=== PATIENT | female | born 1945 | race African-American/Black ===

== ENCOUNTER 2016-07-23 06:47 | Day surgery (SDC) | payer OTHER ==
[2016-07-17 16:03] VITALS: BMI 29.2
[~2016-07-23 06:47] MED LIST: CHONDROITIN SU A/HYALUR SOD 1 KIT IO ONE; LIDOCAINE HCL 1% PRESERVATIVE FREE - 30ML VIAL IO ONE; TRYPAN BLUE 0.5 ML DISP.SYRIN IO ONE
[2016-07-23] MEDS: CIPROFLOXACIN 0.3% EYE DROPS 5 ML BOTTLE ONE ×3 (07:10→07:43)
[2016-07-23] MEDS: PHENYLEPHRINE 2.5% OPHTH SOLN 15 ML BOTTLE ONE ×3 (07:10→07:44)
[2016-07-23] MEDS: FLURBIPROFEN 0.03% OPHTH SOLN 2.5 ML BOTTLE ONE ×3 (07:10→07:43)
[2016-07-23] MEDS: TROPICAMIDE 1% OPHTH SOLN 15 ML BOTTLE ONE ×3 (07:10→07:44)
[2016-07-23] MEDS: CYCLOPENTOLATE HCL 1% OPHTH SOLN 2 ML BOTTLE ONE ×3 (07:10→07:43)
[2016-07-23 07:14] VITALS: TEMP 98.3
[2016-07-23] MEDS ORDERED: EPINEPHrine/PF 1 MG/1 ML (1:1,000) AMPULE ONE (07:24)
[2016-07-23] MEDS ORDERED: ACETYLCHOLINE 1:100 INTRA-OCUL 20 MG/2 ML KIT ONE (07:25)
[2016-07-23] MEDS ORDERED: VANCOMYCIN 500 MG VIAL (RESTRICTED TO ID ONLY) ONE (07:25)
[2016-07-23] MEDS ORDERED: LIDOCAINE HCL 2% JELLY (5 ML/TUBE) ONE (07:25)
[2016-07-23] MEDS ORDERED: LIDOCAINE HCL/PF 1% SDV 5ML VIAL ONE (07:25)
[2016-07-23] MEDS ORDERED: TRYPAN BLUE 0.5 ML DISP.SYRIN ONE (07:25)
[2016-07-23] MEDS ORDERED: WATER FOR INJ,STERILE 10 ML ONE (07:25)
[2016-07-23] MEDS ORDERED: POVIDONE-IODINE 5% OPHTHALMIC PREP 30 ML SOLUTION ONE (07:26)
[2016-07-23] MEDS ORDERED: ACETAMINOPHEN 325 MG TABLET (FP) PO PRN (07:55)
[2016-07-23] MEDS ORDERED: CYCLOPENTOLATE HCL 1% OPHTH SOLN 2 ML BOTTLE OP SCH (08:00)
[2016-07-23] MEDS ORDERED: TROPICAMIDE 1% OPHTH SOLN 15 ML BOTTLE OP SCH (08:00)
[2016-07-23] MEDS ORDERED: PHENYLEPHRINE 2.5% OPHTH SOLN 15 ML BOTTLE OP SCH (08:00)
[2016-07-23] MEDS ORDERED: CIPROFLOXACIN HCL 0.3% OPHTH 2.5ML BOTTLE OP SCH (08:00)
[2016-07-23] MEDS ORDERED: FLURBIPROFEN 0.03% OPHTH SOLN 2.5 ML BOTTLE OP SCH (08:00)
[2016-07-23] MEDS ORDERED: LIDOCAINE HCL 2% JELLY (5 ML/TUBE) TP ONE (08:00)
[2016-07-23] MEDS ORDERED: MIDAZOLAM HCL 2 MG/2 ML SINGLE DOSE VIAL ONE (08:10)
[2016-07-23] MEDS ORDERED: LIDOCAINE HCL 1% PRESERVATIVE FREE - 30ML VIAL IO ONE (08:20)
[2016-07-23] MEDS ORDERED: TRYPAN BLUE 0.5 ML DISP.SYRIN IO ONE (08:20)
[2016-07-23] MEDS ORDERED: CHONDROITIN SU A/HYALUR SOD 1 KIT IO ONE (08:21)
[2016-07-23 10:07] VITALS: BP 157/79; PULSE 85
--- NOTE | 2016-07-24 13:55 | SPEC ---
DATE OF SURGERY: 07/23/2016 OPERATION: Phacoemulsification of left cataract, capsular staining with Trypan blue and intraocular lens implantation, lens used [id number], 23.0 Diopter power, Serial No. [id number]. PREOPERATIVE DIAGNOSIS: Cataract left eye. POSTOPERATIVE DIAGNOSIS: Combined cataract left eye. SURGEON: Judson Zurita M.D. ANESTHESIA: Topical MAC. COMPLICATIONS: None. PROCEDURE: The patient was brought to the operating room and correctly identified along with the operative site as well as correct intraocular lens kohli. The patient was then prepped and draped in the usual sterile fashion including 5% Betadine solution in the conjunctival sac and an eyelid drape. An eyelid speculum was then placed into the operative eye. The eye was inspected and a poor red reflex was noted. A paracentesis port was created and .5 mL of intracameral preservative-free Lidocaine 1% was given. Beneath an air bubble, the capsule was then stained with Trypan blue. The Trypan blue was then irrigated from the eye with balanced salt solution (BBS). Viscoelastic was injected to inflate the anterior chamber. A temporal clear corneal would was created. A continuous circular capsulorrhexis was performed. The nucleus was then hydro-dissected and hydro-delineated was BSS and removed with phacoemulsification via [id number] approach. The remaining cortical material was irrigated and aspirated from the eye. Viscoelastic was injected in the anterior chamber to inflate the capsular bag. The intraocular lens was then injected into the bag. The Viscoelastic was irrigated and aspirated from the eye. All wounds were tested and found to be watertight. No suture was placed. The intraocular lens was noted to be well centered and covered by the anterior capsular border. Topical Vancomycin was given. The eye was patched and shielded. The patient was discharged from the operating room in stable condition. Faby [id number]
== END 2016-07-23 10:15 | disposition home or self-care (01) ==
LOC: JASU-SURG 06:47
PROVIDERS: ATTEND Ophthalmology
PROC: 08RK3JZ Replacement of Left Lens with Synthetic Substitute, Percutaneous Approach (ICD-10-PCS; principal; 2016-07-23 08:00)
DX: H25.812 Combined forms of age-related cataract, left eye (principal)

== ENCOUNTER 2018-03-11 16:58 | Emergency (ER) | payer OTHER ==
--- NOTE | 2018-03-11 17:33 | PDOC ---
Rapid Medical Evaluation Chief Complaint: Vaginal Sxs Time Seen by Provider: 03/11/18 17:26 Medical Evaluation: Allergies Allergy/AdvReac Type Severity Reaction Status Date / Time No Known Drug Allergies Allergy Verified 07/08/16 17:30 dander Allergy Uncoded 07/07/16 11:41 pollen Allergy Uncoded 07/07/16 11:41 03/11/18 17:29 I have performed a brief in person evaluation of this patient. The patient presents with a CC of: vaginal drainage Pt is a 72 YO female who states that earlier today she felt "a mucoid substance vaginally x 2." Pt denies pain. She denies hx of stress incontinence or hysterectomy. PE: Skin: clear Lungs: Clear Heart: RRR Abd: No pain upon palpation MS: Moves all extremities without difficulty. Psych: Age appropriate. UA/Urine Culture ordered The patient will proceed to the ED for further evaluation. Discharge Disposition - Diagnosis Vaginal discharge - Referrals - Patient Instructions - Post Discharge Activity
[2018-03-11 17:44] VITALS: BMI 28.7
--- NOTE | 2018-03-11 18:10 | PDOC ---
History of Present Illness - General Chief Complaint: Vaginal Sxs Stated Complaint: DRAINAGE Time Seen by Provider: 03/11/18 17:26 History Source: Patient Exam Limitations: No Limitations Past History - Past Medical History Allergies/Adverse Reactions: Allergies Allergy/AdvReac Type Severity Reaction Status Date / Time No Known Drug Allergies Allergy Verified 07/08/16 17:30 dander Allergy Uncoded 07/07/16 11:41 pollen Allergy Uncoded 07/07/16 11:41 Home Medications: Ambulatory Orders Losartan/Hydrochlorothiazide [Losartan-Hctz 100-12.5 mg Tab] 1 each PO HS Rosuvastatin Calcium [Crestor] 10 mg PO HS 07/09/16 Anemia: No Asthma: Yes (seasonal allergies) Cardiac Disorders: No CVA: No COPD: No CHF: No Dementia: No Diabetes: No GI Disorders: No Disorders: No HTN: Yes Hypercholesterolemia: Yes Liver Disease: No Seizures: No Thyroid Disease: No - Immunization History Immunization Up to Date: Yes - Suicide/Smoking/Psychosocial Hx Smoking History: Never smoked Have you smoked in the past 12 months: No Information on smoking cessation initiated: No Hx Alcohol Use: No Drug/Substance Use Hx: No Substance Use Type: None Hx Substance Use Treatment: No *Physical Exam - Vital Signs Last Vital Signs Temp Pulse Resp BP Pulse Ox 98.1 F 107 H 16 163/76 100 03/11/18 17:29 03/11/18 17:29 03/11/18 17:29 03/11/18 17:29 03/11/18 17:29 ED Treatment Course - LABORATORY CBC & Chemistry Diagram: 03/11/18 20:55 03/11/18 19:35 Medical Decision Making - Medical Decision Making Pt was seen at bedside, also will be seen by attending Dr. Alaniz. Pt presenting with PE showed [] Considering [vs vs] Ordered work-up including [labs] and [imaging]. Provided [interventions/meds] for improvement of [pain/symptom control]. Will continue to reassess pt and monitor for symptomatic improvement. 03/11/18 18:27 Asked pt to undress and gown. Will perform pelvic exam, chaperoned by Dr. Alaniz. Pending UA results. 03/11/18 18:32 Vaginal exam showed blood in the vaginal canal, no discharge. Cervix not visualized. Ordered transvaginal US to evaluate for fibroids. UA showed 3+ blood and 323 RBCs, pt has vaginal bleeding, no urinary symptoms. Tech drawing blood, will be taken to US. Pt comfortable and denying any pain control at this point. 03/11/18 19:25 Pt was taken to US, lab results pending. 03/11/18 19:57 Pt returned from US. Calling lab to ask about pending labs. 03/11/18 20:17 Lab did not receive CBC tube. Nursing staff will re-draw and send to lab. Pending US results. 03/11/18 20:34 Pending CBC results, CMP WNL 03/11/18 21:11 [id number] US/TRANSVAGINAL ULTRASOUND US Transvaginal ultrasound Clinical information: vaginal bleeding/discharge; evaluate for fibroid The exam was performed utilizing transvaginal as well as transabdominal scanning. The endometrium is thickened measuring 1.3 cm. Several intramural partially calcified leiomyomas are noted the most prominent measuring 3 cm in diameter. Overall uterine size is approximately 10 x 7 x 7 cm. No free intraperitoneal fluid is seen. The ovaries could not be definitely visualized. No gross adnexal pathology is identified. Impression: Nonspecific endometrial thickening is noted (1.3 cm) - ? hyperplasia versus neoplastic disease. Several partially calcified uterine leiomyomas are seen. 03/11/18 21:[address] Quintero to see if pt can follow-up in clinic within next 1-2 days. Pending CBC, called lab who stated it will be ready in a few minutes. 03/11/18 21:[address] Quintero, who will see the pt in clinic for endometrial biopsy. Considering [normal lab results and imaging] pt can be discharged to home with follow-up. Pt advised to follow-up with PCP in 1-2 days and has been referred to [referrals]. Strict return precautions provided with pt understanding. 03/11/18 21:36 *DC/Admit/Observation/Transfer Diagnosis at time of Disposition: Vaginal discharge - Discharge Dispostion Disposition: HOME Condition at time of disposition: Stable Decision to Admit order: No - Referrals Referrals: Shea Coronado MD [Staff Physician] - Kamla Quintero MD [Staff Physician] - - Patient Instructions Printed Discharge Instructions: DI for Vaginal Discharge Additional Instructions: You were seen in the ER today for fluid from your vagina. Please follow-up with your primary care doctor (Dr. Valdivia) and your ENGINEERING TECHNICAL WRITER doctor (Dr. Quintero) within 1-2 days to discuss your visit and make sure your symptoms have improved. You were provided copies of your lab results and ultrasound, which you can take to your clinic visits. Please return to the ER if you have any new or worsening pain, vaginal discharge that is worse or becomes foul-smelling, development of fevers or chills, loss of consciousness, inability to tolerate food or fluids, urinary symptoms (frequency or pain), or any other concerns. - Post Discharge Activity
[2018-03-11 18:44] LABS: URINE APPEARANCE CLEAR; URINE BILIRUBIN NEGATIVE (<2.0 mg/dL); URINE COLOR LTYELLOW; URINE GLUCOSE (UA) NEGATIVE (NEGATIVE); URINE KETONE NEGATIVE (NEGATIVE); URINE LEUK ESTERASE TRACE (NEGATIVE); URINE NITRITE NEGATIVE (NEGATIVE); URINE PROTEIN NEGATIVE (NEGATIVE); URINE UROBILINOGEN NEGATIVE mg/dL (0.2-1.0)
[2018-03-11 18:53] LABS: URINE HYALINE CAST 1 /lpf; URINE MUCUS RARE
--- NOTE | 2018-03-11 19:15 | PDOC ---
Attending Attestation - HPI HPI: 03/11/18 19:17 The patient is a 72 year old female with a significant past medical history of HTN and HLD who presents to the ED for vaginal discharge earlier today. The patient states she felt a mucus gush from her vagina around 2:30 pm earlier today. She states the mucus like vaginal discharge has resolved and she now has vaginal bleeding. Denies recent trauma. Denies fever or chills. Denies any other symptoms. - Physicial Exam PE: 03/11/18 19:17 Constitutional: Awake, alert, oriented. No acute distress. Head: Normocephalic. Atraumatic Eyes: PERRL. EOMI. Conjunctivae are not pale. ENT: Mucous membranes are moist and intact. Posterior pharynx without exudates or erythema. Uvula midline. Neck: Supple. Full ROM. No lymphadenopathy. Cardiovascular: Regular rate. Regular rhythm. S1, S2 regular. Distal pulses are 2+ and symmetric. Pulmonary/Chest: No evidence of respiratory distress. Clear to auscultation bilaterally No wheezing, rales or rhonchi. Abdominal: Soft and non-distended. There is no tenderness. No rebound, guarding or rigidity. No organomegaly. No palpable masses. Good bowel sounds. Vaginal: + external genital is normal. Blood in vaginal canal, no active bleeding. Back: No CVA tenderness. Musculoskeletal: No edema. No cyanosis. No clubbing. Full range of motion in all extremities. Nocalf tenderness. Radial/pedal pulses are intact and 2+ bilaterally Skin: Skin is warm and dry. No petechiae. No purpura. Neurological: Alert and oriented to person, place, and time. Cranial nerves II -XII are grossly intact. Normal speech. Strength is grossly symmetric. No sensory deficits. Psychiatric: Good eye contact. Normal interaction, affect and behavior. <Lalitha Unger - Last Filed: 03/11/18 19:17> - Resident Resident Name: Nlisa Turner - ED Attending Attestation I have performed the following: I have examined & evaluated the patient, The case was reviewed & discussed with the resident, I agree w/resident's findings & plan, Exceptions are as noted - Medical Decision Making 03/11/18 19:13 I, Dr. Barby Alaniz, DO, attest that this document has been prepared under my direction and personally reviewed by me in its entirety. I further attest, that it accurately reflects all work, treatment, procedures and medical decision -making performed by me. 03/11/18 19:13 a/p: 72yo female with vaginal bleeding -hx of fibroids -follows with Dr. Quintero -calcified fibroid on bedside ultrasound -no urinary retention -no urinary complaints -soaking through pads with initially yellow fluid, now BRB -no clots -will send labs, pelvic ultrasound to eval the fibroid 03/11/18 21:41 pt with fibroids on ultrasound and endometrial thickening resident discussed the case with Dr. Quintero who will see patient in next day for appt and bx resident discussed labs and imaging with the patient pt is stable for d/c to home and follow up with Dr. Quintero <Barby Alaniz - Last Filed: 03/11/18 21:50> Attestations - Attestations 03/11/18 19:17 Documentation prepared by Lalitha Unger, acting as durable medical equipment repairer for Barby Alaniz DO <Lalitha Unger - Last Filed: 03/11/18 19:17>
[2018-03-11 20:41] LABS: ALK PHOS 67 U/L (45-117); ANION GAP 10 MMOL/L (8-16); BILIRUBIN,TOTAL 0.6 mg/dL (0.2-1); BLOOD UREA NITROGEN 22 mg/dL (7-18); CALCIUM 9.1 mg/dL (8.5-10.1); CHLORIDE 105 mmol/L (98-107); CO2 27 mmol/L (21-32); CREATININE 0.8 mg/dL (0.55-1.3); GLUCOSE,RANDOM 88 mg/dL (74-106); POTASSIUM 3.6 mmol/L (3.5-5.1); SGOT/AST 17 U/L (15-37); SGPT/ALT 24 U/L (13-61); SODIUM 142 mmol/L (136-145); TOT PROT 7.4 g/dl (6.4-8.2)
[2018-03-11 21:26] LABS: BASO % 0.6 % (0-2.0); EOS % 1.2 % (0-4.5); HEMATOCRIT 37.9 % (32.4-45.2); HEMOGLOBIN 12.2 GM/dL (10.7-15.3); LYMPH % 16.9 % (8-40); MCH 29.2 pg (25.7-33.7); MCHC 32.2 g/dl (32.0-36.0); MEAN CELL VOLUME 90.9 fl (80-96); MEAN PLT VOLUME 10.6 fl (7.5-11.1); NEUT % 73.3 % (42.8-82.8); PLATELET COUNT 158 K/MM3 (134-434); RBC 4.17 M/mm3 (3.60-5.2)
[2018-03-11 22:20] VITALS: BP 152/46; PULSE 84; TEMP 97.9
== END 2018-03-11 21:55 | disposition home or self-care (01) ==
LOC: JER 16:58
DX: N89.8 Other specified noninflammatory disorders of vagina (principal); I10 Essential (primary) hypertension; E78.00 Pure hypercholesterolemia, unspecified; J45.909 Unspecified asthma, uncomplicated
CPT/HCPCS: 36415; 76830-TC; 80053; 81003; 81015; 85025; 86850; 86900; 86901; 87086; 99283-25

== ENCOUNTER 2018-06-25 04:57 | Day surgery (SDC) | payer OTHER ==
[2018-06-21 17:35] VITALS: BMI 28.3
[2018-06-25] MEDS ORDERED: LIDOCAINE HCL/PF 2% SDV 5ML VIAL ONE (07:18)
[2018-06-25] MEDS ORDERED: PROPOFOL 20 ML ONE (07:19)
[2018-06-25] MEDS ORDERED: MIDAZOLAM HCL 2 MG/2 ML SINGLE DOSE VIAL ONE (07:19)
[2018-06-25] MEDS ORDERED: ROCURONIUM BROMIDE 50 MG/5 ML VIAL ONE (07:19)
--- NOTE | 2018-06-25 07:38 | HP ---
Admitting History and Physical - Admission Chief Complaint: Vaginal bleeding History of Present Illness: 73 yo Para 1 with postmenopausal bleeding, is pre op for D&C hysteroscopy. History Source: Patient Limitations to Obtaining History: No Limitations - Past Medical History ...: No ...Para: 1 - Past Surgical History Past Surgical History: Yes: None - Smoking History Smoking history: Never smoked Have you smoked in the past 12 months: No - Alcohol/Substance Use Hx Alcohol Use: No History of Substance Use: reports: None - Social History Usual Living Arrangement: Yes: Alone History of Recent Travel: No Home Medications - Allergies Allergies/Adverse Reactions: Allergies Allergy/AdvReac Type Severity Reaction Status Date / Time No Known Drug Allergies Allergy Verified 06/21/18 17:51 dander Allergy Uncoded 06/21/18 17:51 pollen Allergy Uncoded 06/21/18 17:51 - Home Medications Home Medications: Ambulatory Orders Losartan/Hydrochlorothiazide [Losartan-Hctz 100-12.5 mg Tab] 1 each PO HS Rosuvastatin Calcium [Crestor] 10 mg PO HS 07/09/16 Multivitamin [Multiple Vitamins] 1 each PO DAILY 06/25/18 Family Disease History - Family Disease History Family History: Unremarkable Review of Systems - Review of Systems Constitutional: reports: No Symptoms Eyes: reports: No Symptoms HENT: reports: No Symptoms Neck: reports: No Symptoms Cardiovascular: reports: No Symptoms Respiratory: reports: No Symptoms Gastrointestinal: reports: No Symptoms Genitourinary: reports: Vaginal Bleeding Breasts: reports: No Symptoms Reported Musculoskeletal: reports: No Symptoms Integumentary: reports: No Symptoms Neurological: reports: No Symptoms Endocrine: reports: No Symptoms Hematology/Lymphatic: reports: No Symptoms Psychiatric: reports: No Symptoms Pain Intensity: 0 Physical Examination Vital Signs: Vital Signs Temperature 98.3 F 06/25/18 06:29 Pulse Rate 93 H 06/25/18 06:29 Respiratory Rate 20 06/25/18 06:29 Blood Pressure 158/85 06/25/18 06:29 O2 Sat by Pulse Oximetry (%) 99 06/25/18 06:29 Constitutional: Yes: Well Nourished Eyes: Yes: Conjunctiva Clear HENT: Yes: Atraumatic Neck: Yes: Supple Cardiovascular: Yes: Regular Rate and Rhythm Respiratory: Yes: Regular Gastrointestinal: Yes: Normal Bowel Sounds Musculoskeletal: Yes: WNL Extremities: Yes: WNL Neurological: Yes: Alert, Oriented ...Motor Strength: WNL Psychiatric: Yes: Alert, Oriented Problem List - Problems (1) Postmenopausal bleeding Code(s): N95.0 - POSTMENOPAUSAL BLEEDING Assessment/Plan Postmenopausal bleeding Pre op for D&C Hysteroscopy Consent signed Anesthesia to see patient
[2018-06-25] MEDS ORDERED: DESFLURANE GAS 240 ML BOTTLE IH ONE (07:50)
[2018-06-25] MEDS ORDERED: ONDANSETRON 4 MG/2 ML VIAL IVPUSH PRN (07:57)
[2018-06-25] MEDS ORDERED: oxyCODONE HCL 5 MG TABLET PO PRN (07:57)
[2018-06-25] MEDS ORDERED: LACTATED RINGERS SOLUTION 1,000 ML IV SCH (08:00)
--- NOTE | 2018-06-25 08:03 | OP ---
Operative Note - Note: Operative Date: 06/25/18 Pre-Operative Diagnosis: Postmenopausal bleeding Operation: D&C Hysteroscopy Findings: Multiple polyps Post-Operative Diagnosis: Same as Pre-op Surgeon: Kamla Quintero Anesthesia: General Specimens Removed: Endometrial curettings Estimated Blood Loss (mls): 5 Operative Report Dictated: Yes
--- NOTE | 2018-06-25 10:25 | OP ---
DATE OF OPERATION: 06/25/2018 PREOPERATIVE DIAGNOSIS: Postmenopausal bleeding. POSTOPERATIVE DIAGNOSIS: Postmenopausal bleeding. PROCEDURE: Dilatation and curettage, hysteroscopy. SURGEON: Kamla Quintero MD ANESTHESIA: General. COMPLICATIONS: None. ESTIMATED BLOOD LOSS: 5 mL. DESCRIPTION OF PROCEDURE: Patient was taken to the operating room, where general anesthesia was administered. Patient was then placed in lithotomy position. She was then prepped and draped in proper sterile fashion. A weighted speculum was placed in the vagina. The anterior lip of the cervix was grasped with a single-tooth tenaculum. Then, the 5-mm hysteroscope was then gently introduced into the uterine cavity. Several polyps were noted in the cavity. Then, the hysteroscope was removed. The cervical os was then sequentially dilated with Rodriguez dilators. Then, a sharp curettage was then performed. The instruments were then removed. The patient was taken out of lithotomy position. She was taken to PACU in stable condition. PATHOLOGY: Endometrial curettings. Faby [id number] MTDD
[2018-06-25 12:01] VITALS: BP 154/84; PULSE 90; TEMP 98
--- NOTE | 2018-06-30 15:22 | PATH ---
Surgical Pathology Report Patient Name: CARLI HANNAH [facility]. Rec. #: [id number] /Age/Gender: 1945 (Age: 73) / F Account: [id number] Location: [facility] Taken: 06/25/2018 Received: 06/25/2018 Reported: 06/30/2018 Physicians: Kamla Quintero M.D. Specimen(s) Received ENDOMETRIAL CURETTINGS Clinical History Postmenopausal bleeding Final Diagnosis ENDOMETRIAL CURETTINGS, DILATION AND CURETTAGE: ENDOMETRIOID CARCINOMA, FIGO 3. Comment: The tumor shows large areas of solid tumor growth and areas of necrosis. Focal squamous differentiation and myxoid stroma is noted. Immunohistochemical stains performed at [place], [place] ([id number]) for CABRERA utilized to evaluate this case. Case seen interdepartmentally. Findings discussed with Dr. Quintero. Electronically Signed Kaela Landaverde M.D. Gross Description Received in formalin labeled "endometrial curettings," is a 5.5 x 3.5 x 0.6 cm aggregate of [place] red soft tissue fragments admixed with blood clot. The formalin is filtered and the specimen is entirely submitted in 5 cassettes. /06/25/2018 saudi06/25/2018
== END 2018-06-25 10:50 | disposition home or self-care (01) ==
LOC: JASU-SURG 04:57
PROVIDERS: ATTEND Obstetrics & Gynecology
PROC: 0UDB7ZX Extraction of Endometrium, Via Natural or Artificial Opening, Diagnostic (ICD-10-PCS; principal; 2018-06-25 07:30)
PROC: 0UJD8ZZ Inspection of Uterus and Cervix, Via Natural or Artificial Opening Endoscopic (ICD-10-PCS; 2018-06-25 07:30)
DX: N95.0 Postmenopausal bleeding (principal)
CPT/HCPCS: 88305-TC; 94760

== ENCOUNTER 2018-08-03 11:35 | Day surgery (SDC) | payer OTHER ==
[2018-08-02 09:19] VITALS: BMI 28.8
[2018-08-03] MEDS ORDERED: BUPIVACAINE HCL/PF 0.5% (5MG/ML) 10 ML VIAL ONE (13:24)
[2018-08-03] MEDS ORDERED: INDOCYANINE GREEN 25 MG/10 ML VIAL IVPUSH ONE ×2 (13:30→14:38)
[2018-08-03] MEDS ORDERED: WATER FOR INJ,STERILE 10 ML ONE (13:32)
[2018-08-03] MEDS ORDERED: DEXAMETHASONE SOD PHOSPHATE 4 MG/1 ML VIAL ONE (13:36)
[2018-08-03] MEDS ORDERED: fentaNYL CITRATE 250 MCG/5 ML VIAL ONE (13:37)
[2018-08-03] MEDS ORDERED: MIDAZOLAM HCL 2 MG/2 ML SINGLE DOSE VIAL ONE (13:37)
[2018-08-03] MEDS ORDERED: ROCURONIUM BROMIDE 50 MG/5 ML VIAL ONE (13:37)
[2018-08-03] MEDS ORDERED: PROPOFOL 20 ML ONE (13:37)
--- NOTE | 2018-08-03 13:38 | HP ---
History & Physical Update - History History: No Change - Physical Physical: No Change - Assessment Assessment: No Change - Plan Plan: No Change
[2018-08-03] MEDS ORDERED: CEFAZOLIN 2 GM/D5W 2 GM/50 ML ML IVPB ONE ×2 (14:00→17:00)
[2018-08-03] MEDS ORDERED: ceFAZolin SODIUM 1 GM VIAL ONE (14:13)
[2018-08-03] MEDS ORDERED: BUPIVACAINE HCL/PF 0.5% (5MG/ML) 10 ML VIAL IJ ONE (14:37)
[2018-08-03] MEDS ORDERED: NEOSTIGMINE METHYLSULFATE 0.5 MG/ML - 10 ML MDV ONE (15:56)
[2018-08-03] MEDS ORDERED: BISACODYL 5 MG TABLET.DR (FP) PO PRN (16:16)
[2018-08-03] MEDS ORDERED: DOCUSATE SODIUM 100 MG CAPSULE (FP) PO PRN (16:16)
[2018-08-03] MEDS ORDERED: ONDANSETRON 4 MG/2 ML VIAL IVPUSH PRN ×2 (16:16→17:10)
[2018-08-03] MEDS ORDERED: oxyCODONE HCL 5 MG TABLET PO PRN ×2 (16:16)
[2018-08-03] MEDS ORDERED: PHENAZOPYRIDINE HCL 100 MG TABLET (FP) PO ONE ×2 (16:21→17:00)
[2018-08-03] MEDS ORDERED: KETOROLAC TROMETHAMINE 15 MG/ML VIAL ONE (16:25)
[2018-08-03] MEDS ORDERED: LACTATED RINGERS SOLUTION 1,000 ML/1,000 ML INFUS.BAG IV SCH (16:30)
--- NOTE | 2018-08-03 16:30 | OP ---
Operative Note - Note: Operative Date: 08/03/18 Pre-Operative Diagnosis: Endometrial Cancer Operation: Robotic assisted laparoscopic total hysterectomy with Bilateral salpingectomy and oorphorectomy with sentile node dissection. Post-Operative Diagnosis: Same as Pre-op Surgeon: Vivian Vieira Internal Medicine Specialist: Dixie Beauchamp Anesthesiologist/SUPPLY OFFICER: Kady Olsen Anesthesia: General Specimens Removed: uterus. b/l fallopian tubes. b/l ovaries. b/l nodes Estimated Blood Loss (mls): 25 Drains, Volume Out (mls): 300 (king) Fluid Volume Replaced (mls): 1,500
--- NOTE | 2018-08-03 16:31 | SURG ---
Surgery Drill Rig Operator Note Drill Rig Operator: Dixie Beauchamp PA-C Date of Service: 08/03/18 Diagnosis: endometrial cancer Procedure: Robotic assisted laparoscopic total hysterectomy with Bilateral salpingectomy and oorphorectomy with sentile node dissection. I was present for the entirety of the operative procedure. For further detail, please refer to operative report. Visit type - Case Type Case Type: Scheduled - Emergency Emergency Visit: No - New patient This patient is new to me today: Yes Date on this admission: 08/03/18
[2018-08-03] MEDS ORDERED: ACETAMINOPHEN 1000 MG/100 ML VIAL (NON FORMULARY) IVPB ONE (16:35)
[2018-08-03] MEDS ORDERED: KETOROLAC TROMETHAMINE 15 MG/ML VIAL IVPUSH ONE (16:45)
--- NOTE | 2018-08-03 18:20 | OP ---
DATE OF OPERATION: 08/03/2018 PREOPERATIVE DIAGNOSIS: Endometrial cancer. POSTOPERATIVE DIAGNOSIS: Endometrial cancer. PROCEDURE: Robotic-assisted total hysterectomy and bilateral salpingo- oophorectomy and bilateral pelvic sentinel lymph node dissection. SURGEON: Vivian Vieira MD ANESTHESIA: General endotracheal. ESTIMATED BLOOD LOSS: 25 mL. COMPLICATIONS: None. INDICATIONS: This is a 73-year-old who reports that she had a large amount of clear mucoid material which was passed vaginally. She had a pelvic ultrasound that showed the endometrial stripe to be 1.7 cm thickness. She denied any postmenopausal vaginal bleeding. Pelvic ultrasound on March 21, 2018, showed the uterus to be 10 x 7 x 7 cm with an endometrial stripe of 1.7 cm. Dilation and curettage on June 25, 2018, showed a grade 3 endometrioid adenocarcinoma. CA-125 was normal at 4. She had a CT scan of the chest, abdomen and pelvis that did not show any evidence of metastatic disease. The patient was counseled regarding surgical management. Risks, benefits, indications and alternatives were discussed with the patient. All questions were answered. Informed consent was signed. FINDINGS: Cervix no lesions. Vagina no lesions. Labia with atrophy and hypopigmentation consistent with lichen sclerosis. Intraabdominal findings: Normal liver edge. Normal appendix. Uterus approximately 10 weeks' size with multiple fibroids. Bilateral tubes and ovaries appeared normal. There was no evidence of lymphadenopathy. There was no ascites or evidence of intraabdominal disease. DESCRIPTION OF PROCEDURE: The patient was taken to the operating room and placed in the dorsal supine position. General endotracheal anesthesia was obtained without difficulty. She was placed in the dorsal lithotomy position in Gagan stirrups and prepped and draped in normal sterile fashion. A Trinidad catheter was placed into the bladder. Speculum was placed in the vagina. The cervix was grasped with a single-toothed tenaculum ICG dye 1.25 mg/mL was injected into the cervix at the 9 o'clock superficially. A total of 4 mL was used. The cervix was gently dilated and the VCare uterine manipulation was placed. Tenaculum and speculum were then removed. Attention was turned to the patient's abdomen. Marcaine 0.5%, 5 mL, was injected into the umbilicus and an 8-mm incision was made with a scalpel. While tenting the anterior abdominal wall the Veress needle was inserted intraabdominally. The abdomen was inflated with CO2 gas. An 8-mm trocar was placed. Intraabdominal placement was confirmed by direct visualization with the laparoscope. An additional 8-mm trocar was placed in the left mid quadrant and right mid quadrant and a 5-mm assist port was placed in the right lower quadrant. All trocars were placed under direct visualization after injecting 0.5% Marcaine with epinephrine. The Da Onel robot was then docked without difficulty. A thorough exam of the abdomen and pelvis was performed. Peritoneal washings were taken using normal saline. The right adnexa was elevated. The right ureter was noted to be well away from the field of dissection. The right infundibulopelvic ligament was clamped, cauterized and transected. This was carried through the broad ligament, the round ligament and the vesicouterine peritoneum anteriorly. The right retroperitoneum was opened and using fluoroscopic guidance the right external iliac sentinel lymph node was identified. It was the only lymph node which was fluorescent green, which was removed and handed off the field. Excellent hemostasis obtained. The left retroperitoneum was opened. The left ureter was identified and noted to be well away from the field of dissection. The left infundibulopelvic ligament was clamped, cauterized and transected. This was carried through the broad ligament, the round ligament and the vesicouterine peritoneum anteriorly. The bladder was dissected off the anterior cervix and upper vagina. The retroperitoneum was opened. The left external iliac sentinel lymph node was identified. It was the only lymph node in this area that was fluorescent green. It was removed and handed off the field. Bilateral sentinel lymph node were sent for frozen section to pathology and returned negative. The uterine arteries bilaterally were skeletonized. They were clamped, cauterized and transected. Cardinal ligaments were serially clamped, cauterized and transected. The uterosacral ligaments were clamped, cauterized and transected. A vaginotomy incision was made circumferentially around the cervix. The uterus, cervix, ovaries and tubes were passed through the vagina. The vaginal cuff was closed in a running locked fashion using 2-0 V-Loc suture. The pelvis was thoroughly irrigated with sterile water and noted to be hemostatic. Surgicel was placed on the lymph node beds and on the vaginal cuff for added assurance. All instruments were removed from the patient's abdomen. The Da Onel robot was then undocked. We again looked intraabdominally; excellent hemostasis was seen. All trocars were removed. The skin was closed with 4-0 Monocryl. The vagina was irrigated copiously with Betadine solution. The patient was extubated and transferred in stable condition to the PACU. Faby [id number] MTDD
[2018-08-03] MEDS ORDERED: HYDROCHLOROTHIAZIDE 12.5 MG CAPSULE (FP) PO SCH (22:00)
[2018-08-03] MEDS ORDERED: LOSARTAN POTASSIUM 50 MG TABLET (FP) PO SCH (22:00)
[2018-08-03] MEDS ORDERED: PATIENT'S OWN MEDICATION (NON-FORMULARY) (Losartan/Hydrochlorothiazide [Losartan-Hctz 100- PO SCH (22:00)
[2018-08-03] MEDS ORDERED: ROSUVASTATIN CA 10 MG TABLET (FP) PO SCH (22:00)
[2018-08-03] MEDS: ACETAMINOPHEN 1000 MG/100 ML VIAL (NON FORMULARY) IVPB SCH (22:06)
[2018-08-03] MEDS: CEFAZOLIN 1 GM/D5W 1 GM/50 ML BAG IVPB SCH (23:00)
[2018-08-04] MEDS: KETOROLAC TROMETHAMINE 30 MG/1 ML VIAL IVPUSH SCH ×2 (02:30→09:56)
[2018-08-04] MEDS: ACETAMINOPHEN 1000 MG/100 ML VIAL (NON FORMULARY) IVPB SCH ×2 (04:30→09:57)
[2018-08-04] MEDS: CEFAZOLIN 1 GM/D5W 1 GM/50 ML BAG IVPB SCH ×2 (06:38→13:38)
[2018-08-04 06:47] LABS: HEMATOCRIT 34.3 % (32.4-45.2); HEMOGLOBIN 11.7 GM/dL (10.7-15.3); MCH 31.3 pg (25.7-33.7); MCHC 34.2 g/dl (32.0-36.0); MEAN CELL VOLUME 91.4 fl (80-96); MEAN PLT VOLUME 10.1 fl (7.5-11.1); PLATELET COUNT 158 K/MM3 (134-434); RBC 3.76 M/mm3 (3.60-5.2); RDW 13.5 % (11.6-15.6)
[2018-08-04 07:04] LABS: ANION GAP 7 MMOL/L (8-16); BLOOD UREA NITROGEN 11 mg/dL (7-18); CALCIUM 8.4 mg/dL (8.5-10.1); CHLORIDE 103 mmol/L (98-107); CO2 28 mmol/L (21-32); CREATININE 0.9 mg/dL (0.55-1.3); GLUCOSE,RANDOM 99 mg/dL (74-106); SODIUM 138 mmol/L (136-145)
--- NOTE | 2018-08-04 07:32 | DS ---
Physical Exam: SUBJECTIVE: Patient seen and examined. POD #1. Recovering s/p Robotic assisted laparoscopic total hysterectomy with Bilateral salpingectomy and oorphorectomy with sentile node dissection. Patient has gotten out of bed and ambulating unassisted. King cath removed at 6AM but hasn't voided yet. States she has no incisional pain. Tolerating PO diet. Denies n/v/f/c, CP, palpitations, SOB, LANDEROS or vaginal bleeding. OBJECTIVE: Vital Signs Temperature 98.4 F 08/04/18 06:00 Pulse Rate 80 08/04/18 06:00 Respiratory Rate 18 08/04/18 06:00 Blood Pressure 142/72 08/04/18 06:00 O2 Sat by Pulse Oximetry (%) 98 08/03/18 21:00 PHYSICAL EXAM GENERAL: The patient is awake, alert, and fully oriented, in no acute distress. HEAD: Normal with no signs of trauma. NECK: Trachea midline, full range of motion, supple. LUNGS: CTA HEART: RRR ABDOMEN: All surgical ports c/d/i. No hematoma. EXTREMITIES: 2+ pulses, warm, well-perfused, no edema. PSYCH: Normal mood, normal affect. LABS CBC,CMP Sodium 138 mmol/L (136-145) 08/04/18 05:56 Potassium 4.0 mmol/L (3.5-5.1) 08/04/18 05:56 Chloride 103 mmol/L (98-107) 08/04/18 05:56 Carbon Dioxide 28 mmol/L (21-32) 08/04/18 05:56 Anion Gap 7 MMOL/L (8-16) L 08/04/18 05:56 BUN 11 mg/dL (7-18) 08/04/18 05:56 Creatinine 0.9 mg/dL (0.55-1.3) 08/04/18 05:56 Creat Clearance w eGFR 61.21 (>60) 08/04/18 05:56 Random Glucose 99 mg/dL (74-106) 08/04/18 05:56 Calcium 8.4 mg/dL (8.5-10.1) L 08/04/18 05:56 HOSPITAL COURSE: Date of Admission:08/03/18 Date of Discharge: 08/04/18 The patient was admitted to the [facility] after an elective repair of their endometrial cancer. Now, s/p Robotic assisted laparoscopic total hysterectomy with Bilateral salpingectomy and oorphorectomy with sentile node dissection. The day of surgery, the patient ambulated the hallways without assistance. Narcotic and non-narcotic pain management control was achieved with an oral and IV approach. POD #1, king cath removed and trial of void. Mayelin-operative IV ABX were administered. DVT prophylaxis was achieved with SCDs and early ambulation. [place] [employer] MANAGER checked prior to escribe. The discharge instructions and an oral pain management plan were reviewed with the patient. All questions answered. Above plan discussed with Dr. Vieira and agreed. Minutes to complete discharge: 35 Visit type - Case Type Case Type: Scheduled - New patient This patient is new to me today: Yes Date on this admission: 08/04/18
[2018-08-04] MEDS ORDERED: ENOXAPARIN NA (PORCINE) 40 MG/0.4 ML DISP.SYRIN SQ SCH (10:00)
[2018-08-04] MEDS ORDERED: PNEUMOC 13-VAL CONJ-DIP CRM/PF 0.5 ML DISP.SYRIN IM ONE (10:00)
[2018-08-04 15:28] VITALS: BP 145/63; PULSE 84; TEMP 98.5
--- NOTE | 2018-08-05 14:49 | PATH ---
Cytology Non-Gynecological Report Patient Name: CARLI HANNAH Med. Rec. #: [id number] /Age/Gender: 1945 (Age: 73) / F Account: [id number] Location: AMBULATORY SURG Taken: 08/03/2018 Received: 08/04/2018 Reported: 08/05/2018 Physicians: Vivian Vieira MD Specimen(s) Received PERITONEAL WASHING Clinical History Endometrial carcinoma Final Diagnosis PERITONEAL WASHING FOR CYTOLOGY: SATISFACTORY FOR EVALUATION. NO MALIGNANT CELLS IDENTIFIED. MESOTHELIAL CELLS IN HEMORRHAGIC BACKGROUND PRESENT. Comment: See concurrent material ([id number]). Electronically Signed Kaela Landaverde M.D. Gross Description Approximately 50 cc of bloody fluid received fresh. One cytofunnel prepared and Pap stained. One cellblock prepared.
--- NOTE | 2018-08-11 13:50 | PATH ---
Surgical Pathology Report Patient Name: CARLI HANNAH [facility]. Rec. #: [id number] /Age/Gender: 1945 (Age: 73) / F Account: [id number] Location: AMBULATORY SURG Taken: 08/03/2018 Received: 08/03/2018 Reported: 08/11/2018 Physicians: Vivian Vieira MD Specimen(s) Received A: LEFT EXTERNAL ILIAC SENTINEL LYMPH NODE B: RIGHT EXTERNAL ILIAC SENTINEL LYMPH NODE C: UTERUS, CERVIX, BILATERAL TUBES AND OVARIES Clinical History Endometrial cancer Intraoperative Consult Diagnosis A. Left external iliac sentinel lymph node, dissection (FS): Negative for carcinoma (0/1). B. Right external iliac sentinel lymph node, dissection (FS): Negative for carcinoma (0/1). C. Uterus, cervix, bilateral tubes and ovaries, intraoperative gross examination: Hemorrhagic lesion/tumor within the endometrial cavity, depth of invasion >50%, leiomyoma. Kang Monson M.D., 08/03/2018 Final Diagnosis A. EXTERNAL ILIAC SENTINEL LYMPH NODE, LEFT, DISSECTION (FS): ONE LYMPH NODE NEGATIVE FOR CARCINOMA ON H&E AND CONFIRMED BY AE1/3 IMMUNOHISTOCHEMICAL STAIN (0/1). B. EXTERNAL ILIAC SENTINEL LYMPH NODE, RIGHT, DISSECTION (FS): ONE LYMPH NODE NEGATIVE FOR CARCINOMA ON H&E AND CONFIRMED BY AE1/3 IMMUNOHISTOCHEMICAL STAIN (0/1). C. UTERUS, CERVIX, BILATERAL TUBES AND OVARIES, ROBOTIC ASSISTED TOTAL HYSTERECTOMY AND BILATERAL SALPINGO-OOPHORECTOMY (FS): HIGH-GRADE ENDOMETRIAL CARCINOMA WITH AREAS OF DEDIFFERENTIATION, MEASURING 5 x 4 CM (GROSS DIMENSION). CARCINOMA INVADES >50% OF MYOMETRIUM. LYMPHOVASCULAR INVASION IDENTIFIED. PERINEURAL INVASION IDENTIFIED. NO CERVICAL STROMAL INVASION IDENTIFIED. NO PARAMETRIAL INVOLVEMENT IDENTIFIED. ADDITIONAL AREAS OF ADENOMYOSIS AND LEIOMYOMA WITH DEGENERATIVE CHANGES AND ASSOCIATED DYSTROPHIC CALCIFICATIONS. BILATERAL OVARIES AND FALLOPIAN TUBE WITH ENDOSALPINGOSIS. AJCC (TNM) stage, 8th Edition: pT1b pN0 (sn) SEE COMMENT. Comment: This case is challenging. Grossly the endometrial cavity is filled by a hemorrhagic, friable, and focally necrotic mass. Histologic sections show areas of low grade endometrioid adenocarcinoma with back to back glands and squamous differentiation; juxtaposed with solid sheets of malignant cells with nuclear pleomorphism, abundant mitosis, necrosis, focal myxoid stroma, and prominent lymphocytic infiltrate. The solid component undermines the low grade areas and invades > 50% of myometrium. The tumor is diffusely positive for p16, while p53 shows wild type staining. Low grade areas of tumor are positive for AE1/3, CABRERA, ER, and Ecadherin. Solid areas have patchy staining with AE1/3 and negative for CABRERA, ER, and E-cadherin. Chromogranin and synaptophysin are focally positive supportive of focal neuroendocrine differentiation. Mismatch repair proteins (MLH-1, MSH2, MSH6, PMS2) show intact nuclear expression consistent with low probability of microsatellite instability (MSI-H). Overall histomorphology and immunophenotype is consistent with a High grade endometrial carcinoma with areas of dedifferentiation. See concurrent pelvic washing ([id number]). Prior biopsy reviewed ([id number]). Case seen interdepartmentally. AE1/3, Ecadherin, ER, Chromogranin, and synaptophysin stains performed at [facility]. CABRERA, p16, p53, MLH1, MSH2, MSH6, PMS2 performed at [facility] in [place], [place] ([id number]). Immunohistochemical tests performed at [facility] laboratory have not been cleared or approved for specific use by the U.[place] Food and Drug Administration (FDA). The FDA has determined that such clearance or approval is not necessary. In accordance with CLIA'88 requirements, this laboratory has verified the validity and accuracy of these results for clinical purposes. Positive and negative controls (internal if applicable) show appropriate results. Comments Endometrial Carcinoma :Surgical Pathology Cancer Case Summary Based on AJCC 8th edition Procedure _X__ Total hysterectomy and bilateral salpingo-oophorectomy Tumor Size Greatest dimension: 5 x 4 cm Histologic Type _X__ High-grade endometrial carcinoma with areas of dedifferentiation (Dedifferentiated carcinoma) Myometrial Invasion _X__ Present _X__ Estimated greater than or equal to 50% myometrial invasion Uterine Serosa Involvement _X__ Not identified Cervical Stromal Involvement _X__ Not identified Other Tissue/Organ Involvement _X__ Not identified Lymphovascular Invasion _X__ Present Regional Lymph Nodes Pelvic Node Examination Number of Pelvic Nodes with Macrometastasis (greater than 2 mm): 0 Number of Pelvic Nodes with Micrometastasis (greater than 0.2 mm and up to 2 mm): 0 Number of Pelvic Nodes with Isolated Tumor Cells (0.2 mm or less): 0 Total Number of Pelvic Nodes Examined (sentinel and non-sentinel): 2 Number of Pelvic Oak[place] Nodes Examined: 2 Laterality of Pelvic Node(s) Examined: Left and right external iliac lymph nodes Pathologic Stage Classification (pTNM, AJCC 8th Edition) Primary Tumor (pT) _X__ pT1b: Tumor invading one-half or more of the myometrium Regional Lymph Nodes (pN) _X__ (sn): Oak[place] lymph nodes Category (pN) _X__ pN0: No regional lymph node metastasis MISMATCH REPAIR PROTEIN ANALYSIS performed at [facility] in [place], [place] ([id number]) and interpreted at [facility] show the following: RESULTS: HMLH-1 INTACT NUCLEAR EXPRESSION HMSH-2 INTACT NUCLEAR EXPRESSION HMSH-6 INTACT NUCLEAR EXPRESSION PMS2 INTACT NUCLEAR EXPRESSION INTERPRETATION: No loss of nuclear expression of MMR proteins: low probability of microsatellite instability-high (MSI-H). Electronically Signed Kaela Landaverde M.D. Gross Description A. Received fresh labeled "left external iliac sentinel lymph node," is a 1.5 x 0.5 x 0.3 cm [place] lymph node with attached fat. The specimen is submitted in toto for frozen section. The frozen section residue is entirely submitted in one cassette. B. Received fresh labeled "right external iliac sentinel lymph node," is a 0.5 x 0.3 x 0.3 cm [place] lymph node with attached fat. The specimen is submitted in toto for frozen section. The frozen section residue is entirely submitted in one cassette. C. Received fresh labeled "uterus and cervix for frozen," is a 202 g uterus with an attached cervix and bilateral attached adnexa. The specimen measures 9 cm from superior to inferior, 5.5 cm from left to right and 5.5 cm from anterior to posterior. The serosa is [place]-al and smooth. The attached cervix measures 3 cm in length and 2.3 cm in diameter. The ectocervix is [place], smooth and glistening. The endocervix is unremarkable. The endometrial cavity measures 5 cm in length and 4.0 cm from cornu to cornu. The entire endometrial cavity is filled with a hemorrhagic, friable, and focally necrotic mass. The mass grossly invades into the myometrium, with the deepest invasion at the inferior, posterior aspect. The mass does not grossly appear to invade the serosa. The myometrium displays multiple, focally calcified intramural nodules ranging from 0.7-3.5 cm in greatest dimension. The remaining myometrium is [place] boone and averages 2.5 cm in thickness. The right fimbriated fallopian tube measures 5 cm in length. The outer surface is al purple and smooth. Sectioning reveals unremarkable lumen. The right ovary measures 2.2 x 1.0 x 0.8 cm. The outer surface is [place]-yellow, convoluted and smooth. Sectioning reveals unremarkable ovarian parenchyma. The left fimbriated fallopian tube measures 4 cm in length. The outer surface is [place]-al and smooth. Sectioning reveals an unremarkable lumen. The left ovary measures 2.3 x 1.1 x 1.0 cm. The outer surface is [place]-yellow, convoluted and smooth. Sectioning reveals unremarkable ovarian parenchyma. An intraoperative gross examination is performed. Counterintelligence Specialist sections are submitted in 27 cassettes as follows: 1-anterior cervix; 2-anterior lower uterine segment; 3-posterior cervix; 4-posterior lower uterine segment; 5-right parametrium; 6-left parametrium; 0-81-vjctrjzn endomyometrium with mass from superior to inferior; 63-30-ukknltgay endomyometrium with mass from superior to inferior (deepest gross invasion in cassettes 15-17); 19-anterior intramural nodule, following decalcification; 37-50-wzxnvspoc intramural nodules; 22-right fallopian tube fimbria; 23-cross sections of right fallopian tube; 24-right ovary; 25-left fallopian tube fimbria; 26-cross sections of left fallopian tube; 27-left ovary. 08/03/2018 [facility]08/03/2018
== END 2018-08-04 15:00 | disposition home or self-care (01) ==
LOC: JASUSAT 11:35 → J3W 18:20 → JASUSAT 08-04 15:00
PROVIDERS: ATTEND Obstetrics & Gynecology Gynecologic Oncology
PROC: 0UT2FZZ Resection of Bilateral Ovaries, Via Natural or Artificial Opening With Percutaneous Endoscopic Assistance (ICD-10-PCS; 2018-08-03)
PROC: 0UT7FZZ Resection of Bilateral Fallopian Tubes, Via Natural or Artificial Opening With Percutaneous Endoscopic Assistance (ICD-10-PCS; 2018-08-03)
PROC: 8E0W4CZ Robotic Assisted Procedure of Trunk Region, Percutaneous Endoscopic Approach (ICD-10-PCS; 2018-08-03)
PROC: 07BC4ZX Excision of Pelvis Lymphatic, Percutaneous Endoscopic Approach, Diagnostic (ICD-10-PCS; 2018-08-03)
PROC: 0UT9FZZ Resection of Uterus, Via Natural or Artificial Opening With Percutaneous Endoscopic Assistance (ICD-10-PCS; principal; 2018-08-03 13:00)
DX: C54.1 Malignant neoplasm of endometrium (principal)
CPT/HCPCS: 38570; 58552; S2900; 36415; 80048; 85027; 86850; 86900; 86901; 88104; 88305-TC; 88307-TC; 88331-TC; 88341-TC; 88342-TC; 94760; J0131

== ENCOUNTER 2019-12-13 06:53 | Observation (INO) | payer OTHER ==
[2019-12-13] MEDS ORDERED: MECLIZINE HCL 12.5 MG TABLET PO ONE (08:01)
[2019-12-13] MEDS ORDERED: SODIUM CHLORIDE 0.9% 500 ML INFUS.BAG IV ONE (08:03)
[2019-12-13] MEDS ORDERED: MECLIZINE HCL 12.5 MG TABLET ONE (08:09)
--- NOTE | 2019-12-13 08:14 | PDOC ---
History of Present Illness - General Chief Complaint: Lightheaded Stated Complaint: NAUSEA,DIZZINESS Time Seen by Provider: 12/13/19 07:13 History Source: Patient Exam Limitations: No Limitations - History of Present Illness Initial Comments: Tonja Antunez is a 74 Y F with a PMH of HTN, HLD, Endometrial Ca, s/p Total hysterectomy with b/l salpingectomy and oorphorectomy w sentile node dissection, s/p radiation therapy (5d/w x 5wks), Presents with 1 day of dizziness. She reports that when she was walking to her room from the bathroom, she started to feel like she was going to black out, with surrounding area spinning. She regained her footing and went to her bed room to lay down. When she laid down in her bed, she felt the bed and the room around her was spinning. She reports that this was the first time this happened recently, but has had some episodes many years ago. She reports any movement in any direction bring on the sensation of dizziness with L>R, and laying still resolves it. No associated auditory or visual changes, headache, nausea, vomiting, palpitaions, chst pain, SOB, fever, cough, LOC, fall, or headtrauma. No recent medications or antibiotics. She rep orts 2 months of pelvic pain/discomfort, dysuria, decreased PO intake, loss of appetite, decreased energy, weight loss of ~30lbs(intentional, advised by PCP to lose 20lbs) She reports that she did not take her home BP meds yesterday, because she felt unwell. 12/13/19 08:55 Past History - Travel History Traveled outside of the country in the last 30 days: No - Medical History Allergies/Adverse Reactions: Allergies Allergy/AdvReac Type Severity Reaction Status Date / Time No Known Drug Allergies Allergy Verified 12/13/19 07:11 dander Allergy Uncoded 12/13/19 07:11 pollen Allergy Uncoded 12/13/19 07:11 Home Medications: Ambulatory Orders Losartan/Hydrochlorothiazide [Losartan-Hctz 100-12.5 mg Tab] 1 each PO HS 07/07/16 Rosuvastatin Calcium [Crestor] 10 mg PO HS 07/09/16 Multivitamin [Multiple Vitamins] 1 each PO DAILY 06/25/18 Docusate Sodium [Colace] 100 mg PO Q8H #30 capsule 08/04/18 Tramadol HCl 50 mg PO Q6H PRN #30 tablet MDD 4 08/04/18 Anemia: No Asthma: Yes (seasonal allergies) Cancer: Yes (endometrial) Cardiac Disorders: No CVA: No COPD: No CHF: No Dementia: No Diabetes: No GI Disorders: No Disorders: No HTN: Yes Hypercholesterolemia: Yes Liver Disease: No Seizures: No Thyroid Disease: No - Surgical History Abdominal Surgery: Yes (Total hysterectomy with b/l salpingectomy and oorphorectomy) - Immunization History Immunization Up to Date: Yes - Psycho-Social/Smoking History Smoking History: Never smoked Have you smoked in the past 12 months: No Information on smoking cessation initiated: No - Substance Abuse Hx (Audit-C & DAST Scrn) How often the patient has a drink containing alcohol: Never Score: In Men: 4 or > Positive; In Women: 3 or > Positive: 0 Screen Result (Pos requires Nsg. Audit-10AR): Negative In the last yr the pt used illegal drug/Rx for NonMed reason: No Score: Yes response is considered Positive: 0 Screen Result (Positive result requires Nsg. DAST-10): Negative Review of Systems - Review of Systems Able to Perform ROS?: Yes Is the patient limited Lao proficient: No Constitutional: Yes: Diaphoresis (during the episode of dizziness), Loss of Appetite, Weakness (generalized weakness + loss of energy). No: Chills, Fever HEENTM: No: Blurred Vision, Nose Congestion, Throat Pain, Difficulty Swallowing Respiratory: No: Cough, Shortness of Breath, Wheezing Cardiac (ROS): Yes: Lightheadedness (with movement). No: Chest Pain, Edema, Palpitations, Syncope ABD/GI: Yes: Constipated (for 4 weeks), Poor Appetite. No: Diarrhea, Difficulty Swallowing, Nausea, Vomiting : Yes: Burning (for 2 months), Dysuria. No: Frequency, Hematuria Musculoskeletal: Yes: Joint Pain (soreness of b/l hip). No: Joint Stiffness Neurological: Yes: Dizziness. No: Headache, Numbness, Tingling, Tremors *Physical Exam - Vital Signs Last Vital Signs Temp Pulse Resp BP Pulse Ox 98.1 F 119 H 20 181/87 H 100 12/13/19 07:03 12/13/19 07:03 12/13/19 07:03 12/13/19 07:03 12/13/19 07:03 - Physical Exam 12/13/19 General Appearance: Yes: Appropriately Dressed. No: Apparent Distress HEENT: positive: EOMI (3 beat nystagmus to the left), PITO, Symmetrical, Pharynx Normal (dry Mucosa). negative: Nasal Congestion, Rhinorrhea Neck: positive: Supple. negative: Tender, Carotid bruit, Rigidity Respiratory/Chest: positive: Lungs Clear, Normal Breath Sounds. negative: Respiratory Distress, Crackles, Rales, Rhonchi Cardiovascular: positive: Regular Rhythm, S1, S2, Tachycardia. negative: Edema, JVD, Murmur Vascular Pulses: Carotid (R): 2+, Carotid (L): 2+, Dorsalis-Pedis (R): 2+, Doralis-Pedis (L): 2+ Gastrointestinal/Abdominal: positive: Normal Bowel Sounds, Soft. negative: Tender, Guarding, Tenderness Extremity: positive: Normal Inspection, Delayed Capillary Refill. negative: Normal Capillary Refill, Swelling, Calf Tenderness Neurologic: positive: web application tester II-XII NML intact, Fully Oriented, Alert, Motor Strength 5/5, Finger to Nose (intact). negative: Facial Droop, Numbness, Sensory Deficit ED Treatment Course - LABORATORY CBC & Chemistry Diagram: 12/13/19 07:55 12/13/19 07:55 - ADDITIONAL ORDERS Additional order review: Laboratory Results 12/13/19 07:02 POC Glucometer 118 12/13/19 07:02 POC Glucometer 118 - RADIOLOGY Radiology Studies Ordered: Category Date Time Status CXRPORT [CHEST X-RAY PORTABLE*] [RAD] Stat Radiology 12/13/19 08:00 Ordered Medical Decision Making - Medical Decision Making 74 Y F with a PMH of HTN, HLD, Endometrial Ca, s/p Total hysterectomy with b/l salpingectomy and oorphorectomy w sentile node dissection, s/p radiation therapy (5d/w x 5wks), Presents with 1 day of dizziness. #Central vertigo vs peripheral vertigo vs Pre-syncope - reports bi directional vertigo - CXR- no acute pathology - head CT-r/o acute bleed - CBC, CMP, Mg, PHOS: WBC 11.8 - UA- r/o infectious etiology - EKG - Continuos cardiac monitoring - Meclizine 12.5mg - N/S 1000mls - V/S: P 112, orthostatic BP: Supine 162/76 P105, sitting 184/81 P107 12/13/19 08:52 12/13/19 08:54 Discharge - Discharge Information Problems reviewed: Yes Clinical Impression/Diagnosis: Vertigo Condition: Fair - Admission Yes - Follow up/Referral Referrals: Martita Fernández MD [Primary Care Provider] - - Patient Discharge Instructions - Post Discharge Activity
[2019-12-13 08:33] LABS: BASO % 0.3 % (0-2.0); EOS % 0.1 % (0-4.5); HEMATOCRIT 36.9 % (32.4-45.2); HEMOGLOBIN 12.2 GM/dL (10.7-15.3); LYMPH % 4.6 % (8-40); MCH 30.2 pg (25.7-33.7); MCHC 33.2 g/dl (32.0-36.0); MEAN CELL VOLUME 91.1 fl (80-96); MEAN PLT VOLUME 9.8 fl (7.5-11.1); MONO % 7.2 % (3.8-10.2); NEUT % 87.8 % (42.8-82.8); PLATELET COUNT 213 K/MM3 (134-434); RBC 4.05 M/mm3 (3.60-5.2); RDW 14.1 % (11.6-15.6); WHITE BLOOD COUNT 11.8 K/mm3 (4.0-10.0)
[2019-12-13 09:50] LABS: ALBUMIN 3.4 g/dl (3.4-5.0); ALK PHOS 78 U/L (45-117); ANION GAP 11 MMOL/L (8-16); BILIRUBIN,TOTAL 0.8 mg/dL (0.2-1); BLOOD UREA NITROGEN 10.4 mg/dL (7-18); CALCIUM 9.2 mg/dL (8.5-10.1); CHLORIDE 103 mmol/L (98-107); CO2 22 mmol/L (21-32); CREATININE 0.8 mg/dL (0.55-1.3); GLUCOSE,RANDOM 104 mg/dL (74-106); MAGNESIUM 2.7 mg/dL (1.8-2.4); PHOSPHOROUS 3.7 mg/dL (2.5-4.9); POTASSIUM 5.2 mmol/L (3.5-5.1); SGOT/AST 41 U/L (15-37); SGPT/ALT 19 U/L (13-61); SODIUM 136 mmol/L (136-145); TOT PROT 7.3 g/dl (6.4-8.2)
--- NOTE | 2019-12-13 09:51 | PDOC ---
Attending Attestation - Resident Resident Name: Connie Szymanski - ED Attending Attestation I have performed the following: I have examined & evaluated the patient, The case was reviewed & discussed with the resident, I agree w/resident's findings & plan - HPI HPI: 12/13/19 09:47 74-year-old female with history of hypertension, high cholesterol, distant episode of peripheral vertigo in the 1980s presents now with dizziness/vertigo. Patient was in her usual state of good health, very high functioning, awoke around 1:30 AM to urinate and post micturition developed lightheadedness while seated on the toilet, ambulated to her bed without difficulty, but upon laying down felt several seconds of room spinning vertigo. This transient vertigo recurred with any positional change for the next few hours, lasted a few seconds and then resolved. No associated headache/vision change/speech change/focal deficit, no chest pain or palpitations or shortness of breath, some nausea but no vomiting. Called her daughter this morning, who stated patient was at her baseline. They activated EMS, now feels slightly improved after meclizine. - Physicial Exam PE: 12/13/19 09:48 Vitals as noted, slightly elevated blood pressure Well-appearing and conversant lying comfortably in stretcher Pupils are equal round reactive to light, extraocular movements are intact heart regular, lungs clear, abd benign NEURO: Mental status: The patient is alert and oriented x3. Cranial nerves: Cranial nerves II through XII are intact Motor: The upper extremities are 5 over 5 in all muscle groups. The lower extremities are 5 over 5 in all muscle groups. No pronator drift. Sensation: Sensation is intact to light touch throughout. Cerebellar: Yexuwj-[id number]-uibs is normal in both upper extremities. Pzgy-sckh-mgfb is normal in both lower extremities. Reflexes: 2+ and symmetric in the upper and lower extremities. Gait: Deferred - Medical Decision Making 74y/o F p/w central v peripheral vertigo, light-headedness/near syncope. labs, ua ekg, cxr ct head admission Heart Score/ECG Review #1 ECG reviewed & interpreted by me at: 08:33 General ECG Interpretation: Sinus Rhythm, Normal Rate (106), Normal Intervals (qtc 454), No acute ischemic changes Compared to previous ECG there are: Previous ECG unavail Discharge - Discharge Information Problems reviewed: Yes Clinical Impression/Diagnosis: Vertigo Condition: Fair Disposition: HOME - Follow up/Referral - Patient Discharge Instructions - Post Discharge Activity
--- NOTE | 2019-12-13 10:43 | EKG ---
Test Reason : Blood Pressure : / mmHG Vent. Rate : 106 BPM Atrial Rate : 106 BPM P-R Int : 188 ms QRS Dur : 086 ms QT Int : 342 ms P-R-T Axes : 037 018 001 degrees QTc Int : 454 ms POOR DATA QUALITY, INTERPRETATION MAY BE ADVERSELY AFFECTED SINUS TACHYCARDIA SEPTAL INFARCT , AGE UNDETERMINED ABNORMAL ECG NO PREVIOUS ECGS AVAILABLE Confirmed by Arun Gray ([id number]) on 12/13/2019 10:42:51 AM Referred By: Confirmed By:Arun Gray
[2019-12-13] MEDS ORDERED: MECLIZINE HCL 25 MG TABLET (FP) PO ONE (11:46)
[2019-12-13] MEDS ORDERED: MECLIZINE HCL 25 MG TABLET (FP) ONE (11:48)
[2019-12-13 13:37] LABS: EPI CELLS 14 /uL (0-25.1); HYALINE CASTS 5 /uL (0-3.1); URINE APPEARANCE CLEAR; URINE BACTERIA 17 /uL (0-1359); URINE BILIRUBIN NEGATIVE (NEGATIVE); URINE COLOR YELLOW; URINE GLUCOSE (UA) NEGATIVE (NEGATIVE); URINE KETONE 1+ (NEGATIVE); URINE LEUK ESTERASE TRACE (NEGATIVE); URINE NITRITE NEGATIVE (NEGATIVE); URINE PROTEIN NEGATIVE (NEGATIVE); URINE RBC 32 /uL (0-23.9); URINE WBC 39 /uL (0-25.8)
[2019-12-13 19:01] VITALS: BMI 25.2
--- NOTE | 2019-12-13 19:19 | CON.NEURO ---
Consult Consult Specialty:: NEUROLOGY-KEYLA ESCOBAR - History of Present Illness History of Present Illness: 74-year-old female with history of hypertension, high cholesterol, distant episode of peripheral vertigo in the presents now with dizziness/vertigo. Patient was in her usual state of good health, very high functioning, awoke around 1:30 AM to urinate and post micturition developed lightheadedness while seated on the toilet, ambulated to her bed without difficulty, but upon laying down felt several seconds of room spinning vertigo. This transient vertigo recurred with any positional change for the next few hours, lasted a few seconds and then resolved. No associated headache/vision change/speech change/focal deficit, no chest pain or palpitations or shortness of breath, some nausea but no vomiting. -States received antivert x 2 in ER with some relief but vertigo recurs upon head movement. - Past Surgical History Past Surgical History: Yes: None - Alcohol/Substance Use Hx Alcohol Use: No History of Substance Use: reports: None - Smoking History Smoking history: Never smoked Have you smoked in the past 12 months: No - Social History History of Recent Travel: No Home Medications - Allergies Allergies/Adverse Reactions: Allergies Allergy/AdvReac Type Severity Reaction Status Date / Time No Known Drug Allergies Allergy Verified 12/13/19 07:11 dander Allergy Uncoded 12/13/19 07:11 pollen Allergy Uncoded 12/13/19 07:11 - Home Medications Home Medications: Ambulatory Orders Losartan/Hydrochlorothiazide [Losartan-Hctz 100-12.5 mg Tab] 1 each PO HS 07/07/16 Rosuvastatin Calcium [Crestor] 10 mg PO HS 07/09/16 Multivitamin [Multiple Vitamins] 1 each PO DAILY 06/25/18 Docusate Sodium [Colace] 100 mg PO Q8H #30 capsule 08/04/18 Tramadol HCl 50 mg PO Q6H PRN #30 tablet MDD 4 08/04/18 Physical Exam-Neuro Vital Signs: Vital Signs Temperature 98 F 12/13/19 18:39 Pulse Rate 88 12/13/19 18:39 Respiratory Rate 18 12/13/19 18:39 Blood Pressure 170/80 12/13/19 18:39 O2 Sat by Pulse Oximetry (%) 94 L 12/13/19 18:47 Labs: CBC, BMP 12/13/19 07:55 12/13/19 07:55 - Neuro Exam Eyes: Yes: Nystagmus (+ coarse right beating nystagmus with roratory component but also has few beats of left beating nystagmus) DTR's: 0 Left Achilles, 0 Right Achilles, 1+ Left Bicep, 1+ Right Bicep, 1+ Left Tricep, 1+ Right Tricep, 1+ Left Brachioradialis Babinski: Absent Motor Strength: 5/5: Left Arm, Right Arm, Left Leg, Right Leg Gait: Ataxia (2/2 vertigo) Imaging - Results Cat Scan: Report Reviewed (No evid. of acute pathology) Assessment/Plan Likely peripheraql benign vertigo however given direction changing nystagmus cannot r/o central vertigo. Performed Eply's maneuver with reproduction of vertigo/nystagmus but without relief. Suggest: MRI brain, Valium 2mg hs, if no relief with Valium would consider Depacon 500mg ivss q8hrs for symptomatic rx. of vertigo. Thank you, Jamison Strong MD
[2019-12-13] MEDS ORDERED: diazePAM 2 MG TABLET PO ONE (19:30)
[2019-12-14] MEDS ORDERED: MECLIZINE HCL 12.5 MG TABLET PO PRN (09:59)
[2019-12-14] MEDS: amLODIPine BESYLATE 5 MG TABLET (FP) PO SCH (10:05)
[2019-12-14] MEDS: LOSARTAN 50MG/HCTZ 12.5MG 1 TAB (FP) PO SCH (10:05)
--- NOTE | 2019-12-14 11:13 | HP ---
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 She was doing well at home. Yesterday morning she felt dizzy, so the daughter brought her here. She was evaluated by the ER and thought that because of her medical problems she may need admission, so got admitted. Evaluated by Dr. Strong, neurologist, also. This morning she feels better, no dizziness. PHYSICAL EXAMINATION: Vital Signs: BP 150/70, pulse 90, respiration 20, temperature 97. HEENT: Unremarkable. Neck: Supple. No JVD. Lungs: Clear. Heart: S1, S2 normal. No S3, S4. Abdomen: Soft. Legs: No edema. Neurologic: Examination grossly normal. DIAGNOSTIC DATA: CT of the head is negative. EKG: Sinus tachycardia. LABORATORY REPORTS: WBC 11.8, hemoglobin 12.2, platelets 213. Chemistry: Sodium 136, potassium 5.2, chloride 103, BUN 10, creatinine 0.8. AST, ALT normal. TSH 0.43. COVID is pending. Urinalysis: RBC 32, WBC 39. IMPRESSION: 1. Dizziness, vertigo, etiology not clear. 2. Hypertension. 3. Hyperlipidemia. 4. Cancer of the uterus. PLAN: Continue her present medications. MRI is ordered. Valium in the night. Will evaluate. FINAL DIAGNOSIS: Dizziness, hypertension, hyperlipidemia. Faby [id number]
[2019-12-14] MEDS ORDERED: ROSUVASTATIN CA 10 MG TABLET (FP) PO SCH (22:00)
[2019-12-15 09:31] VITALS: BP 152/64; PULSE 87; TEMP 98.6
[2019-12-15] MEDS: amLODIPine BESYLATE 5 MG TABLET (FP) PO SCH (09:32)
[2019-12-15] MEDS: LOSARTAN 50MG/HCTZ 12.5MG 1 TAB (FP) PO SCH (09:32)
--- NOTE | 2019-12-15 09:46 | DS ---
Physical Examination Vital Signs: Vital Signs Temperature 98.6 F 12/15/19 09:30 Pulse Rate 87 12/15/19 09:30 Respiratory Rate 20 12/15/19 09:30 Blood Pressure 152/64 12/15/19 09:30 O2 Sat by Pulse Oximetry (%) 100 12/15/19 09:30 Findings/Remarks: Admitted with C/O dizziness ,CT,MRI neg Geovanna evaluation Neg On antivert ,no dizziness today,DC home ,will follow in the office in 1 week Constitutional: Yes: No Distress Eyes: Yes: WNL HENT: Yes: WNL Neck: Yes: WNL Cardiovascular: Yes: WNL Respiratory: Yes: WNL Gastrointestinal: Yes: WNL ...Rectal Exam: Yes: Other (No stool in the rectum) Musculoskeletal: Yes: WNL Extremities: Yes: WNL Integumentary: Yes: WNL Neurological: Yes: Alert Psychiatric: Yes: Alert Labs: CBC, BMP 12/13/19 07:55 12/13/19 07:55 Discharge Summary Problems reviewed: Yes Reason For Visit: VERTIGO Current Active Problems Vertigo (Acute) Condition: Fair - Instructions Referrals: Martita Fernández MD [Primary Care Provider] - - Home Medications Comprehensive Discharge Medication List: Ambulatory Orders Losartan/Hydrochlorothiazide [Losartan-Hctz 100-12.5 mg Tab] 1 each PO HS 07/07/16 Rosuvastatin Calcium [Crestor] 10 mg PO HS 07/09/16 Multivitamin [Multiple Vitamins] 1 each PO DAILY 06/25/18 Docusate Sodium [Colace] 100 mg PO Q8H #30 capsule 08/04/18 Tramadol HCl 50 mg PO Q6H PRN #30 tablet MDD 4 08/04/18
== END 2019-12-15 10:38 | disposition home or self-care (01) ==
LOC: JER 06:53 → JERBED 10:03 → J4W 18:19
PROVIDERS: ADMIT Internal Medicine; ATTEND Internal Medicine
PROC: 3E0337Z Introduction of Electrolytic and Water Balance Substance into Peripheral Vein, Percutaneous Approach (ICD-10-PCS; principal; 2019-12-13)
DX: H81.399 Other peripheral vertigo, unspecified ear (principal); I10 Essential (primary) hypertension; E78.00 Pure hypercholesterolemia, unspecified; Z85.42 Personal history of malignant neoplasm of other parts of uterus; H55.00 Unspecified nystagmus; J30.1 Allergic rhinitis due to pollen; R27.0 Ataxia, unspecified
CPT/HCPCS: 36415; 70450-TC; 70551-TC; 71045-TC-FY; 80053; 81003; 82550; 82962; 83735; 84100; 84443; 84484; 85025; 93005; 93010; 99285-25; G0378; U0003